=== PATIENT | female | born 1950 | race Caucasian/White ===

== ENCOUNTER → 2016-11-03 | Outpatient (CLI) | payer OTHER ==
[~2016-11-03] MED LIST: ADVAIR DISKUS 21 DSK; ALENDRONATE SOD70 M1 PO; ALENDRONATE SODI5 MG PO; ARIMIDEX1 MG PO; ATIVAN0.5 MG PO; BRIN10TA PO; CEFTIN500 MG PO; DURICEF500 MG; JANUMET XR 1001 EACH PO; KEFLEX500 MG PO; KOMBIGLYZE XR 11 TER PO; LIPITOR20 MG PO; LISINOPRIL10 MG PO; LOPRESSOR25 MG PO; Motrin,Rufen800 MG PO; NEXIUM40 MG PO; PREDNISONE10 MG PO; PRILOSEC20 M1 PO; PROAIR HFA0.09 MG/AC; PROTONIX40 MG PO; REGLAN5 MG PO; SYMBICORT1 AE1 INH; TOPROL XL25 MG PO; VICODIN ES 7501 TAB PO; VISTARIL25 M1; VITAMIN D50000 I2 PO; Vicodin 5/500 505 MG PO; ZOFRAN ODT4 MG SL; ZOLOFT100 MG PO; [UNRECOGNIZED DRUG - CODE]
== END | disposition home or self-care (01) ==
LOC: MAMMO 10:18
DX: Z90.12 Acquired absence of left breast and nipple (principal)

== ENCOUNTER → 2016-11-20 | Outpatient (CLI) | payer OTHER ==
[2016-11-20 13:16] LABS: HEMATOCRIT 35.4 % (37.0-47.0); IRF 4.5 % (2.4-13.3); RET-He 32.5 pg (32.1-37.9); RETICULOCYTE % 1.68 % (0.50-2.50)
[2016-11-20 13:34] LABS: HEMOGLOBIN A1c 5.6 % (4.8-5.6)
[2016-11-20 13:44] LABS: ALBUMIN 3.6 gm/dl (3.1-4.5); BILIRUBIN, TOTAL 0.3 mg/dl (0.2-1.0); BUN 17 mg/dl (7-24); CARBON DIOXIDE 27 mmol/L (21-32); CHLORIDE 97 mmol/L (98-107); EST GLOM FILT AFRICAN AMERICAN > 60 ml/min; GLUCOSE 94 mg/dL (65-99); IRON 44 ug/dL (50-170); IRON SATURATION 13 %; POTASSIUM 4.6 mmol/L (3.5-5.1); SGOT/AST 15 IU/L (3-35); SGPT/ALT 23 U/L (12-78); SODIUM 132 mmol/L (136-145); TOTAL PROTEIN 7.1 gm/dL (6.4-8.2); UIBC 287 ug/dL (110-365)
[2016-11-20 13:50] LABS: ALKALINE PHOSPHATASE 108 U/L (45-117); BILIRUBIN, DIRECT 0.1 mg/dL (0.0-0.2); FREE T4 0.94 ng/dl (0.76-1.46)
== END | disposition home or self-care (01) ==
LOC: LAB 12:39
PROVIDERS: Internal Medicine
DX: E11.9 Type 2 diabetes mellitus without complications (principal); E55.9 Vitamin D deficiency, unspecified; E05.90 Thyrotoxicosis, unspecified without thyrotoxic crisis or storm; D64.9 Anemia, unspecified

== ENCOUNTER → 2017-01-16 | Outpatient (CLI) | payer OTHER ==
[2017-01-16 17:14] LABS: FREE T4 0.91 ng/dl (0.76-1.46)
[2017-01-16 17:19] LABS: THYROID STIM HORMONE (HS) 2.03 uIU/ml (0.358-4.75)
== END | disposition home or self-care (01) ==
LOC: LAB 16:05
PROVIDERS: Otolaryngology
DX: E03.9 Hypothyroidism, unspecified (principal)

== ENCOUNTER 2017-03-15 12:31 | Emergency (ER) | payer MEDICARE ==
[~2017-03-15] VITALS: Ht 162.5 cm; Wt 81.6 kg
[2017-03-15 12:50] LABS: BASO # 0.1 10*3/uL (0.0-0.1); BASO % 0.6 % (0.0-1.0); EOS # 0.2 10*3/uL (0.0-0.4); EOS % 1.7 % (1.0-4.0); HEMATOCRIT 35.1 % (37.0-47.0); IG # 0.1 10*3/uL (0.0-0.1); LYMPH # 1.9 10*3/uL (1.3-4.4); LYMPH % 22.2 % (27.0-41.0); MEAN CELL VOLUME 83.6 fl (81.0-99.0); MEAN CORPUSCULAR HGB 28.6 pg (27.0-31.0); MEAN CORPUSCULAR HGB CONC 34.2 g/dl (33.0-37.0); MEAN PLATELET VOLUME 10.2 fl (9.6-12.3); MONO # 0.6 10*3/uL (0.1-1.0); MONO % 7.4 % (3.0-9.0); NEUT # 5.8 10*3/uL (2.3-7.9); NEUT % 67.5 % (47.0-73.0); PLATELET COUNT AUTOMATED 293 10*3/uL (130-400); RED CELL DISTRI WIDTH 13.3 % (0-14.5); WHITE BLOOD COUNT 8.6 10*3/uL (4.8-10.8)
[2017-03-15 12:58] LABS: PROTHROMBIN TIME 10.1 SECONDS (9.0-12.4)
[2017-03-15 13:06] LABS: ALBUMIN 3.8 gm/dl (3.1-4.5); ALKALINE PHOSPHATASE 95 U/L (45-117); BILIRUBIN, TOTAL 0.4 mg/dl (0.2-1.0); BUN 12 mg/dl (7-24); CARBON DIOXIDE 28 mmol/L (21-32); CHLORIDE 88 mmol/L (98-107); EST GLOM FILT AFRICAN AMERICAN 47 ml/min; GLUCOSE 89 mg/dL (65-99); MAGNESIUM 1.7 mg/dL (1.5-2.1); POTASSIUM 4.3 mmol/L (3.5-5.1); SGOT/AST 35 IU/L (3-35); SGPT/ALT 41 U/L (12-78); SODIUM 125 mmol/L (136-145); TOTAL PROTEIN 7.1 gm/dL (6.4-8.2)
[2017-03-15 13:10] LABS: TROPONIN I < 0.015 ng/ml (<0.045)
[2017-03-15 13:28] VITALS: BP 132/80
== END 2017-03-15 17:12 | disposition home or self-care (01) ==
LOC: ED 12:31
PROVIDERS: Emergency Medicine
DX: R07.89 Other chest pain (principal); R06.02 Shortness of breath; R11.0 Nausea; R19.7 Diarrhea, unspecified; E11.9 Type 2 diabetes mellitus without complications; J45.909 Unspecified asthma, uncomplicated; I10 Essential (primary) hypertension; E78.00 Pure hypercholesterolemia, unspecified; Z79.899 Other long term (current) drug therapy

== ENCOUNTER → 2017-08-01 | Outpatient (CLI) | payer MEDICARE, OTHER ==
[2017-08-01 11:17] LABS: ALBUMIN 3.5 gm/dl (3.1-4.5)
[2017-08-01 11:29] LABS: FREE T4 1.48 ng/dl (0.76-1.46); THYROID STIM HORMONE (HS) 3.5 uIU/ml (0.358-4.75)
== END | disposition home or self-care (01) ==
LOC: LAB 10:05
PROVIDERS: Internal Medicine
DX: E05.90 Thyrotoxicosis, unspecified without thyrotoxic crisis or storm (principal); E55.9 Vitamin D deficiency, unspecified

== ENCOUNTER → 2017-11-14 | Outpatient (CLI) | payer MEDICARE, OTHER | END | disposition home or self-care (01) | LOC: MAMMO 08:29 | DX: N63.10 Unspecified lump in the right breast, unspecified quadrant (principal) ==

== ENCOUNTER → 2018-03-12 | Outpatient (CLI) | payer MEDICARE, OTHER ==
[2018-03-12 13:50] LABS: ALBUMIN 3.3 gm/dl (3.1-4.5); ALKALINE PHOSPHATASE 98 U/L (45-117); BILIRUBIN, DIRECT 0.1 mg/dL (0.0-0.2); BUN 16 mg/dl (7-24); CHLORIDE 96 mmol/L (98-107); CREATININE 0.96 mg/dL (0.55-1.02); FREE T4 1.53 ng/dl (0.76-1.46); POTASSIUM 4.5 mmol/L (3.5-5.1); SGOT/AST 16 IU/L (3-35); SGPT/ALT 19 U/L (12-78); SODIUM 130 mmol/L (136-145); TOTAL PROTEIN 7.3 gm/dL (6.4-8.2)
[2018-03-12 13:56] LABS: THYROID STIM HORMONE (HS) 0.171 uIU/ml (0.358-4.75)
[2018-03-13 08:08] LABS: FREE T3 010389 2.5 pg/mL (2.0-4.4); THYROID PEROXIDASE (TPO) AB 11 IU/mL (0-34)
[2018-03-13 15:07] LABS: THYROGLOBULIN ANTIBODY <1.0 IU/mL (0.0-0.9)
== END | disposition home or self-care (01) ==
LOC: LAB 12:37
PROVIDERS: Internal Medicine
DX: E11.9 Type 2 diabetes mellitus without complications (principal); E55.9 Vitamin D deficiency, unspecified; E03.9 Hypothyroidism, unspecified; E78.5 Hyperlipidemia, unspecified; C73 Malignant neoplasm of thyroid gland

== ENCOUNTER → 2018-09-11 | Outpatient (CLI) | payer MEDICARE, OTHER ==
[2018-09-11 15:31] LABS: BILIRUBIN NEGATIVE (NEGATIVE); BLOOD NEGATIVE (NEGATIVE); CLARITY CLEAR (CLEAR); COLOR YELLOW (YELLOW); GLUCOSE NEGATIVE (NEGATIVE); KETONE NEGATIVE (NEGATIVE); LEUKO ESTERASE NEGATIVE (NEGATIVE); NITRITE NEGATIVE (NEGATIVE); UROBILINOGEN 0.2 E.U./dl (0.2-1.0)
[2018-09-11 16:02] LABS: ALBUMIN 3.5 gm/dl (3.1-4.5); BILIRUBIN, DIRECT 0.1 mg/dL (0.0-0.2); CREATININE 1.11 mg/dL (0.55-1.02); FREE T4 1.65 ng/dl (0.76-1.46); POTASSIUM 4.6 mmol/L (3.5-5.1); TOTAL PROTEIN 7.6 gm/dL (6.4-8.2)
[2018-09-11 16:07] LABS: THYROID STIM HORMONE (HS) 0.088 uIU/ml (0.358-4.75)
[2018-09-12 07:07] LABS: THYROID PEROXIDASE (TPO) AB <6 IU/mL (0-34)
[2018-09-12 14:06] LABS: THYROGLOBULIN ANTIBODY <1.0 IU/mL (0.0-0.9)
== END | disposition home or self-care (01) ==
LOC: LAB 15:02
PROVIDERS: Internal Medicine
DX: C73 Malignant neoplasm of thyroid gland (principal); E03.9 Hypothyroidism, unspecified; E11.9 Type 2 diabetes mellitus without complications; E55.9 Vitamin D deficiency, unspecified; E78.5 Hyperlipidemia, unspecified

== ENCOUNTER → 2019-03-05 | Outpatient (CLI) | payer MEDICARE, OTHER | END | disposition home or self-care (01) | LOC: MAMMO 02-27 09:30 | DX: C50.912 Malignant neoplasm of unspecified site of left female breast (principal) ==

== ENCOUNTER → 2019-06-02 | Outpatient (CLI) | payer MEDICARE, OTHER ==
[~2019-06-02] MED LIST changes: +CITALOPRAM20 MG PO; +LEVAQUIN500 M2 PO; +LEVOXYL112 MCG PO; +METFORMIN HYDR500 MG PO; +TRELEGY ELLIPT1 EACH INH; +Ventolin 02.5 MG/3 M INH
== END | disposition home or self-care (01) ==
LOC: RAD 13:10
DX: M81.0 Age-related osteoporosis without current pathological fracture (principal); E11.9 Type 2 diabetes mellitus without complications; Z78.0 Asymptomatic menopausal state

== ENCOUNTER 2019-06-28 16:27 | Inpatient (IN) | payer MEDICARE, OTHER ==
[~2019-06-28] VITALS: Ht 162.5 cm; Wt 81.0 kg
[~2019-06-28 16:27] MED LIST changes: -CITALOPRAM20 MG PO; -LEVAQUIN500 M2 PO; -LEVOXYL112 MCG PO; -METFORMIN HYDR500 MG PO; -TRELEGY ELLIPT1 EACH INH; -Ventolin 02.5 MG/3 M INH
[2019-06-28 16:29] VITALS: BP 163/75
--- NOTE | 2019-06-28 16:42 | NUR ---
PATIENT DENIES ANY WOUNDS AT THIS TIME. PATIENT IS A&OX4.
--- NOTE | 2019-06-28 16:43 | NUR ---
PATIENT PULSE OX IS 96% ON ROOM AIR. PLACED ON 2L OF NASAL CANNULA PER COMFORT.
[2019-06-28 16:51] LABS: BASO # 0.1 10*3/uL (0.0-0.1); BASO % 1.1 % (0.0-1.0); EOS # 0.6 10*3/uL (0.0-0.4); EOS % 7.4 % (1.0-4.0); HEMOGLOBIN 11.9 g/dl (12.0-16.0); LYMPH # 2.1 10*3/uL (1.3-4.4); LYMPH % 25.1 % (27.0-41.0); MEAN CELL VOLUME 86.7 fl (81.0-99.0); MEAN CORPUSCULAR HGB 28.7 pg (27.0-31.0); MEAN CORPUSCULAR HGB CONC 33.1 g/dl (33.0-37.0); MEAN PLATELET VOLUME 9.9 fl (9.6-12.3); MONO # 0.9 10*3/uL (0.1-1.0); MONO % 11.2 % (3.0-9.0); NEUT # 4.6 10*3/uL (2.3-7.9); NEUT % 54.6 % (47.0-73.0); PLATELET COUNT AUTOMATED 422 10*3/uL (130-400); RED BLOOD COUNT 4.15 10*6/uL (4.10-5.10); RED CELL DISTRI WIDTH 12.6 % (0-14.5); WHITE BLOOD COUNT 8.4 10*3/uL (4.8-10.8)
[2019-06-28 17:01] LABS: ACT PARTIAL THROMBO TIME 24.5 SECONDS (20.0-32.1); INTERNATIONAL NORM RATIO 0.9 (2.0-3.5)
[2019-06-28 17:10] LABS: ALBUMIN 3.5 gm/dl (3.1-4.5); ALKALINE PHOSPHATASE 95 U/L (45-117); BUN 22 mg/dl (7-24); CHLORIDE 95 mmol/L (98-107); CREATININE 1.07 mg/dL (0.55-1.02); POTASSIUM 4.6 mmol/L (3.5-5.1); SGOT/AST 14 IU/L (3-35); SGPT/ALT 22 U/L (12-78); SODIUM 129 mmol/L (136-145); TOTAL PROTEIN 7.7 gm/dL (6.4-8.2)
[2019-06-28 17:11] LABS: TROPONIN I < 0.015 ng/ml (<0.045)
--- NOTE | 2019-06-28 17:37 | NUR ---
PT REPORTS SHE IS BREATHING EASIER AFTER BREATHING TREATMENT. IVF INFUSING AND MEDICATED PER EMAR. SPO2 99% ON 2L PER NC.
[2019-06-28 17:45] VITALS: BP 114/67
[2019-06-28 19:02] VITALS: BP 141/73
--- NOTE | 2019-06-28 19:53 | NUR ---
LAB CALLED WITH CRITICAL LACTIC ACID LEVEL 4.5. CAROL RAZA PROVIDED RESULTS.PT TRANSFERRED TO UNIT AT THIS TIME.
[2019-06-28 19:58] VITALS: BP 99/72
--- NOTE | 2019-06-28 19:58 | NUR ---
A 68, admitted to , under the services of ROCIO Johnson DO with a diagnosis of DYSPNEA, SEVERE SEPSIS, COPD EXACERBATION. Chief complaint is SHORTNESS OF BREATH. Patient arrived via bed from ER. Monitor applied. Initial assessment completed. Vital signs taken and recorded. ROCIO JOHNSON DO notified of admission to the unit. Orders received. See assessment for past medical history, medications and allergies. Patient and/or family oriented to unit. [facility] visitation policy reviewed. Clothing/patient valuable form completed. BARRINGTON MORIN
[2019-06-28] MEDS ORDERED: METFORMIN HYDR500 MG PO (20:55)
[2019-06-28] MEDS ORDERED: LEVOXYL112 MCG PO (20:55)
[2019-06-28] MEDS ORDERED: CITALOPRAM20 MG PO (20:56)
[2019-06-28] MEDS ORDERED: Ventolin 02.5 MG/3 M INH (20:56)
[2019-06-28] MEDS ORDERED: TRELEGY ELLIPT1 EACH INH (20:57)
--- NOTE | 2019-06-28 21:02 | NUR ---
DR JOSE NOTIFIED THAT PT MED REC IS UPDATED PER PAPERWORK PROVIDED BY PATIENT.
--- NOTE | 2019-06-28 22:02 | NUR ---
PT GIVEN TYLENOL AT THIS TIME FOR C/O HEADACHE. WILL MONITOR FOR EFFECTIVENESS. CALL LIGHT IN REACH.
--- NOTE | 2019-06-28 22:13 | NUR ---
LAB CALLS THIS NURSE AND GIVES CRITICAL LACTIC ACID LEVEL OF 3.0. DR JOSE NOTIFIED. NO NEW ORDERS RECEIVED.
[2019-06-28 22:32] VITALS: BP 130/78
--- NOTE | 2019-06-28 23:06 | NUR ---
PT STATES THAT TYLENOL IS NOT EFFECTIVE AT THIS TIME FOR PT HEADACHE. NORCO GIVEN. WILL MONITOR FOR EFFECTIVENESS. NO OTHER COMPLAINTS ARE VOICED AT THIS TIME. RESPIRATIONS EASY AND UNLABORED ON 2L NC. CALL LIGHT IN REACH.
[2019-06-29] VITALS: BP 133/75
--- NOTE | 2019-06-29 00:06 | NUR ---
NORCO IS EFFECTIVE PER PT.
--- NOTE | 2019-06-29 00:48 | NUR ---
LAB CALLS THIS NURSE AND GIVES CRITICAL LACTIC ACID LEVEL OF 3.5. NO NEW ORDERS RECEIVED AT THIS TIME.
--- NOTE | 2019-06-29 06:30 | NUR ---
AM BLOOD SUGAR OBTAINED. 190, COVERAGE GIVEN PER S/S. RESPIRATIONS EASY AND UNLABORED ON 2LNC. NO COMPLAINTS ARE VOICED. CALL LIGHT IN REACH.
[2019-06-29 06:54] LABS: HEMATOCRIT 29.9 % (37.0-47.0); HEMOGLOBIN 10.5 g/dl (12.0-16.0); MEAN CELL VOLUME 84.9 fl (81.0-99.0); MEAN CORPUSCULAR HGB 29.8 pg (27.0-31.0); MEAN CORPUSCULAR HGB CONC 35.1 g/dl (33.0-37.0); MEAN PLATELET VOLUME 10.6 fl (9.6-12.3); PLATELET COUNT AUTOMATED 347 10*3/uL (130-400); RED BLOOD COUNT 3.52 10*6/uL (4.10-5.10); RED CELL DISTRI WIDTH 12.6 % (0-14.5); WHITE BLOOD COUNT 5.7 10*3/uL (4.8-10.8)
[2019-06-29 06:59] LABS: ALBUMIN 3.1 gm/dl (3.1-4.5)
[2019-06-29 07:09] LABS: CREATININE 1.17 mg/dL (0.55-1.02); FREE T4 1.65 ng/dl (0.76-1.46); THYROID STIM HORMONE (HS) 0.556 uIU/ml (0.358-4.75); TOTAL PROTEIN 6.6 gm/dL (6.4-8.2)
[2019-06-29 07:10] LABS: POTASSIUM 3.6 mmol/L (3.5-5.1)
[2019-06-29 07:22] LABS: BURR CELLS FEW; OVALOCYTES FEW; PLATELET SUFFICIENCY NORMAL (NORMAL); TOTAL CELLS COUNTED 100 #CELLS
[2019-06-29 07:23] LABS: SCHISTOCYTES FEW
--- NOTE | 2019-06-29 07:34 | NUR ---
NOTIFIED DR RODRIGUEZ OF PT MAGNESIUM LEVEL OF 0.8. NO NEW ORDERS RECEIVED AT THIS TIME.
[2019-06-29 08:00] VITALS: BP 139/63
[2019-06-29 12:00] VITALS: BP 110/50
[2019-06-29 16:00] VITALS: BP 141/63
[2019-06-29 20:00] VITALS: BP 130/64
--- NOTE | 2019-06-29 21:34 | NUR ---
PATIENT MEDICATED WITH RESTORIL FOR COMPLAINTS OF INSOMNIA. DENIES COMPLAINTS OF PAIN OR DISCOMFORT AT THIS TIME. RESPIRATIONS REGULAR AND NON-LABORED ON O2 AT 2L N/C. LUNGS DIMINISHED BILATERALLY. VSS. WILL CONTINUE TO MONITOR. CALL LIGHT IN REACH.
[2019-06-30] VITALS: BP 121/61
--- NOTE | 2019-06-30 02:26 | NUR ---
24 HR chart check completed.
[2019-06-30 06:36] LABS: HEMATOCRIT 30.5 % (37.0-47.0); HEMOGLOBIN 10.2 g/dl (12.0-16.0); MEAN CELL VOLUME 87.1 fl (81.0-99.0); MEAN CORPUSCULAR HGB 29.1 pg (27.0-31.0); MEAN CORPUSCULAR HGB CONC 33.4 g/dl (33.0-37.0); MEAN PLATELET VOLUME 10.1 fl (9.6-12.3); PLATELET COUNT AUTOMATED 371 10*3/uL (130-400); RED CELL DISTRI WIDTH 13.2 % (0-14.5); WHITE BLOOD COUNT 21.9 10*3/uL (4.8-10.8)
[2019-06-30 06:43] LABS: ALBUMIN 3.3 gm/dl (3.1-4.5); ALKALINE PHOSPHATASE 72 U/L (45-117); BUN 16 mg/dl (7-24); CHLORIDE 98 mmol/L (98-107); CREATININE 1.06 mg/dL (0.55-1.02); POTASSIUM 4.5 mmol/L (3.5-5.1); SGOT/AST 19 IU/L (3-35); SGPT/ALT 21 U/L (12-78); SODIUM 129 mmol/L (136-145); TOTAL PROTEIN 6.8 gm/dL (6.4-8.2)
[2019-06-30 07:33] LABS: OVALOCYTES FEW; SCHISTOCYTES FEW; TOTAL CELLS COUNTED 100 #CELLS
[2019-06-30 07:34] LABS: PLATELET SUFFICIENCY NORMAL (NORMAL)
--- NOTE | 2019-06-30 07:59 | NUR ---
PT ALERT AND ORIENTED X3. VITAL SIGNS STABLE. JAUN. PO2 96% RA. HEART SOUNDS NORMAL. LUNGS SOUNDS DIMINISHED. POSITIVE PEDAL PULSES. IV SITE SHOWS NO SIGNS OF INFECTION. ABDOMEN SOFT, NON TENDER, NON DISTENDED. BS X4. SKIN SOFT, PINK, DRY. CAPILARY REFILL <3. NO COMPLAINTS OF PAIN AT THIS TIME. SANGEETA HERRERA SPNRCC
[2019-06-30 08:00] VITALS: BP 130/70
--- NOTE | 2019-06-30 09:00 | NUR ---
Manufacturer Representative in to talk to patient. Patient states lives at home with . There are few steps in the home. Physician: mili clemons Pharmacy: [facility] Home health services: none Patient's level of ADLs: INDEPENDENT Patient has working utilities: all working DME: none Follow-up physician's appointment after d/c: will be made by hospitalist nurse director upon discharge Does patient want to access PORTAL?: no Discharge plan discussed with patient, she states she lives at home with her , she is independent in adls and ambulation she states she will return home when medically stable, she denies any home needs, case management will follow. MAURICIO WANG
[2019-06-30 12:00] VITALS: BP 130/70
[2019-06-30 16:00] VITALS: BP 110/58
[2019-06-30 20:00] VITALS: BP 115/67
[2019-07-01] VITALS: BP 126/73
--- NOTE | 2019-07-01 02:28 | NUR ---
PATIENT RESTING IN BED WITH EYES CLOSED. RESPIRATIONS REGULAR AND NON-LABORED. AROUSES TO VERBAL STIMULI. DENIES COMPLAINTS OF PAIN OR DISCOMFORT. VSS. AMBULATES TO BATHROOM PER SELF. WILL CONTINUE TO MONITOR. CALL LIGHT IN REACH.
[2019-07-01 06:49] LABS: HEMATOCRIT 30.8 % (37.0-47.0); HEMOGLOBIN 10.2 g/dl (12.0-16.0); MEAN CELL VOLUME 88.3 fl (81.0-99.0); MEAN CORPUSCULAR HGB 29.2 pg (27.0-31.0); MEAN CORPUSCULAR HGB CONC 33.1 g/dl (33.0-37.0); MEAN PLATELET VOLUME 9.8 fl (9.6-12.3); PLATELET COUNT AUTOMATED 336 10*3/uL (130-400); RED BLOOD COUNT 3.49 10*6/uL (4.10-5.10); RED CELL DISTRI WIDTH 13.2 % (0-14.5); WHITE BLOOD COUNT 17.6 10*3/uL (4.8-10.8)
[2019-07-01 07:48] LABS: BUN 21 mg/dl (7-24); CHLORIDE 99 mmol/L (98-107); POTASSIUM 4.6 mmol/L (3.5-5.1); SODIUM 130 mmol/L (136-145)
[2019-07-01 07:58] LABS: TOTAL CELLS COUNTED 100 #CELLS
[2019-07-01 07:59] LABS: ACANTHOCYTES FEW; BURR CELLS FEW; OVALOCYTES FEW; PLATELET SUFFICIENCY NORMAL (NORMAL); SCHISTOCYTES FEW
[2019-07-01 08:00] VITALS: BP 134/82
--- NOTE | 2019-07-01 08:00 | NUR ---
Patient resting quietly with no c/o discomfort. Respirations easy and regular. Vital signs stable. No overt distress. DELON CLARK R
--- NOTE | 2019-07-01 09:00 | NUR ---
case management visits with patient, she states she will be discharged to home today, she denies any home needs
[2019-07-01] MEDS ORDERED: PREDNISONE10 MG PO (10:05)
[2019-07-01] MEDS ORDERED: LEVAQUIN500 M2 PO (10:05)
--- NOTE | 2019-07-01 11:30 | NUR ---
AEROSOL MACHINE IS TO BE DELIVERED TO PT HOME. PT STATES UNDERSTANDING.
--- NOTE | 2019-07-01 11:30 | NUR ---
Discharge instructions reviewed with patient/family. Patient receptive and verbalizes understanding. Follow-up care arranged. Written instructions given to patient/family. DELON CLARK
[2019-07-01] MEDS ORDERED: Ventolin 02.5 MG/3 M INH (11:32)
--- NOTE | 2019-07-01 15:52 | NUR ---
case management spoke to nellie from [facility], patient's information and script for nebulizer faxed
== END 2019-07-01 11:26 | disposition home or self-care (01) | DRG 202 ==
LOC: ED 16:27 → 5E 18:38 → EDHOLD 18:38 → 5E 19:46
PROVIDERS: Emergency Medicine; Family Medicine; Internal Medicine; ADMIT Internal Medicine
DX: J45.901 Unspecified asthma with (acute) exacerbation (principal); E87.1 Hypo-osmolality and hyponatremia; E87.2 Acidosis; J43.9 Emphysema, unspecified; D64.9 Anemia, unspecified; D47.3 Essential (hemorrhagic) thrombocythemia; E83.42 Hypomagnesemia; R79.89 Other specified abnormal findings of blood chemistry; I10 Essential (primary) hypertension; F32.9 Major depressive disorder, single episode, unspecified; F41.9 Anxiety disorder, unspecified; Z96.651 Presence of right artificial knee joint; E11.65 Type 2 diabetes mellitus with hyperglycemia; E87.8 Other disorders of electrolyte and fluid balance, not elsewhere classified; E83.39 Other disorders of phosphorus metabolism; E78.5 Hyperlipidemia, unspecified; E89.0 Postprocedural hypothyroidism; Z91.09 Other allergy status, other than to drugs and biological substances; Z98.51 Tubal ligation status; Z90.12 Acquired absence of left breast and nipple; Z87.891 Personal history of nicotine dependence; Z82.49 Family history of ischemic heart disease and other diseases of the circulatory system; Z80.1 Family history of malignant neoplasm of trachea, bronchus and lung; Z80.8 Family history of malignant neoplasm of other organs or systems; Z83.3 Family history of diabetes mellitus; Z82.5 Family history of asthma and other chronic lower respiratory diseases; Z82.0 Family history of epilepsy and other diseases of the nervous system; Z85.3 Personal history of malignant neoplasm of breast; Z85.850 Personal history of malignant neoplasm of thyroid; Z79.899 Other long term (current) drug therapy

== ENCOUNTER 2019-08-04 19:15 | Emergency (ER) | payer MEDICARE, OTHER ==
[~2019-08-04] VITALS: Ht 162.5 cm; Wt 78.0 kg
[~2019-08-04 19:15] MED LIST changes: +CITALOPRAM20 MG PO; +LEVAQUIN500 M2 PO; +LEVOXYL112 MCG PO; +METFORMIN HYDR500 MG PO; +TRELEGY ELLIPT1 EACH INH; +Ventolin 02.5 MG/3 M INH
[2019-08-04 19:18] VITALS: BP 126/66
[2019-08-04 21:10] LABS: HEMATOCRIT 32.9 % (37.0-47.0); HEMOGLOBIN 10.6 g/dl (12.0-16.0); MEAN CELL VOLUME 86.6 fl (81.0-99.0); MEAN CORPUSCULAR HGB 27.9 pg (27.0-31.0); MEAN CORPUSCULAR HGB CONC 32.2 g/dl (33.0-37.0); MEAN PLATELET VOLUME 9.3 fl (9.6-12.3); PLATELET COUNT AUTOMATED 486 10*3/uL (130-400); RED CELL DISTRI WIDTH 12.8 % (0-14.5); WHITE BLOOD COUNT 8.8 10*3/uL (4.8-10.8)
[2019-08-04 21:26] LABS: ALBUMIN 3.1 gm/dl (3.1-4.5); CREATININE 1.19 mg/dL (0.55-1.02); POTASSIUM 4.4 mmol/L (3.5-5.1); TOTAL PROTEIN 7.4 gm/dL (6.4-8.2)
[2019-08-04 21:32] LABS: TOTAL CELLS COUNTED 100 #CELLS
[2019-08-04 21:33] LABS: OVALOCYTES FEW; PLATELET SUFFICIENCY HIGH (NORMAL)
[2019-08-04 22:02] LABS: BILIRUBIN NEGATIVE (NEGATIVE); BLOOD NEGATIVE (NEGATIVE); CLARITY CLEAR (CLEAR); COLOR YELLOW (YELLOW); GLUCOSE NEGATIVE (NEGATIVE); KETONE TRACE (NEGATIVE); LEUKO ESTERASE NEGATIVE (NEGATIVE); NITRITE NEGATIVE (NEGATIVE); PH 6.5 (5.0-9.0); UROBILINOGEN 0.2 E.U./dl (0.2-1.0)
[2019-08-04 22:19] LABS: BACTERIA TRACE; RBC 0-2 rbc/hpf (0-2); WBC 0-2 wbc/hpf (0-5)
[2019-08-04] MEDS ORDERED: PREDNISONE20 M1 PO (23:12)
[2019-08-04] MEDS ORDERED: LEVAQUIN750 M1 PO (23:12)
== END 2019-08-04 23:10 | disposition home or self-care (01) ==
LOC: ED 19:15
PROVIDERS: Emergency Medicine
DX: J44.1 Chronic obstructive pulmonary disease with (acute) exacerbation (principal); E03.9 Hypothyroidism, unspecified; E11.9 Type 2 diabetes mellitus without complications; I10 Essential (primary) hypertension; K21.9 Gastro-esophageal reflux disease without esophagitis; E78.00 Pure hypercholesterolemia, unspecified; Z87.891 Personal history of nicotine dependence; Z91.048 Other nonmedicinal substance allergy status; Z79.2 Long term (current) use of antibiotics; Z79.899 Other long term (current) drug therapy

== ENCOUNTER → 2019-10-17 | Outpatient (CLI) | payer MEDICARE, OTHER ==
[~2019-10-17] MED LIST changes: +LEVAQUIN750 M1 PO; +PREDNISONE20 M1 PO
[2019-10-17 16:04] LABS: BILIRUBIN NEGATIVE (NEGATIVE); BLOOD NEGATIVE (NEGATIVE); CLARITY CLEAR (CLEAR); COLOR YELLOW (YELLOW); GLUCOSE NEGATIVE (NEGATIVE); KETONE NEGATIVE (NEGATIVE); SPECIFIC GRAVITY 1.015 (1.005-1.030)
[2019-10-17 16:05] LABS: LEUKO ESTERASE NEGATIVE (NEGATIVE); NITRITE NEGATIVE (NEGATIVE); UROBILINOGEN 0.2 E.U./dl (0.2-1.0)
[2019-10-17 16:15] LABS: BACTERIA 1+; MUCOUS TRACE; RBC 0-2 rbc/hpf (0-2)
[2019-10-17 16:38] LABS: CREATININE 1.25 mg/dL (0.55-1.02); FREE T4 0.96 ng/dl (0.76-1.46); POTASSIUM 4.6 mmol/L (3.5-5.1); URIC ACID 4.8 mg/dL (2.6-6.0)
[2019-10-17 16:44] LABS: THYROID STIM HORMONE (HS) 8.57 uIU/ml (0.358-4.75)
[2019-10-17 16:45] LABS: PTH INTACT 40.9 pg/mL (18.5-88.0); VITAMIN D, 25-HYDROXY 42.2 ng/mL (30-100)
[2019-10-18 07:06] LABS: THYROID PEROXIDASE (TPO) AB <6 IU/mL (0-34)
[2019-10-20 15:06] LABS: THYROGLOBULIN ANTIBODY <1.0 IU/mL (0.0-0.9)
== END | disposition home or self-care (01) ==
LOC: LAB 14:24
PROVIDERS: Internal Medicine
DX: C73 Malignant neoplasm of thyroid gland (principal); N20.0 Calculus of kidney; E11.9 Type 2 diabetes mellitus without complications; E03.9 Hypothyroidism, unspecified; E55.9 Vitamin D deficiency, unspecified

== ENCOUNTER 2019-12-15 10:12 | Emergency (ER) | payer MEDICARE, OTHER ==
[~2019-12-15] VITALS: Ht 162.5 cm; Wt 82.6 kg
[2019-12-15 11:16] LABS: BASO # 0.1 10*3/uL (0.0-0.1); BASO % 1.2 % (0.0-1.0); EOS # 0.4 10*3/uL (0.0-0.4); EOS % 5.2 % (1.0-4.0); HEMATOCRIT 35.4 % (37.0-47.0); LYMPH # 1.5 10*3/uL (1.3-4.4); LYMPH % 22.6 % (27.0-41.0); MEAN CELL VOLUME 83.7 fl (81.0-99.0); MEAN CORPUSCULAR HGB 28.1 pg (27.0-31.0); MEAN CORPUSCULAR HGB CONC 33.6 g/dl (33.0-37.0); MEAN PLATELET VOLUME 10.5 fl (9.6-12.3); MONO # 0.6 10*3/uL (0.1-1.0); MONO % 8.5 % (3.0-9.0); NEUT # 4.1 10*3/uL (2.3-7.9); NEUT % 62.1 % (47.0-73.0); PLATELET COUNT AUTOMATED 305 10*3/uL (130-400); RED BLOOD COUNT 4.23 10*6/uL (4.10-5.10); RED CELL DISTRI WIDTH 14.1 % (0-14.5); WHITE BLOOD COUNT 6.7 10*3/uL (4.8-10.8)
[2019-12-15 11:27] LABS: ACT PARTIAL THROMBO TIME 23.6 SECONDS (20.0-32.1); INTERNATIONAL NORM RATIO 0.9 (2.0-3.5)
[2019-12-15 11:37] LABS: ALBUMIN 3.4 gm/dl (3.1-4.5); ALKALINE PHOSPHATASE 79 U/L (45-117); BUN 12 mg/dl (7-24); CHLORIDE 94 mmol/L (98-107); LIPASE 254 U/L (73-393); POTASSIUM 4.6 mmol/L (3.5-5.1); SGOT/AST 59 IU/L (3-35); SGPT/ALT 34 U/L (12-78); SODIUM 127 mmol/L (136-145); TOTAL PROTEIN 6.9 gm/dL (6.4-8.2); TROPONIN I < 0.015 ng/ml (<0.045)
[2019-12-15 13:40] VITALS: BP 128/78
[2019-12-15 13:42] LABS: BILIRUBIN NEGATIVE (NEGATIVE); BLOOD NEGATIVE (NEGATIVE); CLARITY SL CLOUDY (CLEAR); COLOR YELLOW (YELLOW); GLUCOSE NEGATIVE (NEGATIVE); KETONE NEGATIVE (NEGATIVE); LEUKO ESTERASE NEGATIVE (NEGATIVE); NITRITE NEGATIVE (NEGATIVE); PH 7.5 (5.0-9.0); UROBILINOGEN 0.2 E.U./dl (0.2-1.0)
[2019-12-15 13:43] LABS: BACTERIA 4+
[2019-12-15 13:56] LABS: CREATININE 1.33 mg/dL (0.55-1.02); POTASSIUM 4.4 mmol/L (3.5-5.1)
[2019-12-15] MEDS ORDERED: LEVOTHYROXINE150 MCG PO (14:36)
== END 2019-12-15 15:26 | disposition home or self-care (01) ==
LOC: ED 10:12
PROVIDERS: Nurse Practitioner Family
DX: E03.9 Hypothyroidism, unspecified (principal); E86.0 Dehydration; I10 Essential (primary) hypertension; K21.9 Gastro-esophageal reflux disease without esophagitis; F41.9 Anxiety disorder, unspecified; F32.9 Major depressive disorder, single episode, unspecified; J45.909 Unspecified asthma, uncomplicated; E11.9 Type 2 diabetes mellitus without complications; M19.90 Unspecified osteoarthritis, unspecified site; E78.00 Pure hypercholesterolemia, unspecified; J44.9 Chronic obstructive pulmonary disease, unspecified; E78.5 Hyperlipidemia, unspecified; Z79.899 Other long term (current) drug therapy; Z87.891 Personal history of nicotine dependence

== ENCOUNTER 2020-01-06 15:49 | Emergency (ER) | payer MEDICARE, OTHER ==
[~2020-01-06] VITALS: Ht 162.5 cm; Wt 81.6 kg
[~2020-01-06 15:49] MED LIST changes: +LEVOTHYROXINE150 MCG PO
[2020-01-06 16:02] VITALS: BP 104/58
[2020-01-06 16:52] LABS: MEAN CELL VOLUME 84.8 fl (81.0-99.0); MEAN CORPUSCULAR HGB 27.8 pg (27.0-31.0); MEAN CORPUSCULAR HGB CONC 32.8 g/dl (33.0-37.0); MEAN PLATELET VOLUME 9.7 fl (9.6-12.3); PLATELET COUNT AUTOMATED 384 10*3/uL (130-400); RED BLOOD COUNT 3.42 10*6/uL (4.10-5.10); RED CELL DISTRI WIDTH 14.6 % (0-14.5)
[2020-01-06 17:08] LABS: ALBUMIN 2.9 gm/dl (3.1-4.5); ALKALINE PHOSPHATASE 133 U/L (45-117); BUN 27 mg/dl (7-24); CHLORIDE 95 mmol/L (98-107); CREATININE 1.21 mg/dL (0.55-1.02); FREE T4 1.88 ng/dl (0.76-1.46); POTASSIUM 4.8 mmol/L (3.5-5.1); SGOT/AST 15 IU/L (3-35); SGPT/ALT 27 U/L (12-78); SODIUM 129 mmol/L (136-145); TOTAL PROTEIN 6.7 gm/dL (6.4-8.2)
[2020-01-06 17:12] LABS: TROPONIN I < 0.015 ng/ml (<0.045)
[2020-01-06 17:13] LABS: BURR CELLS FEW; OVALOCYTES FEW; PLATELET SUFFICIENCY NORMAL (NORMAL); TOTAL CELLS COUNTED 100 #CELLS
[2020-01-06 17:14] LABS: ACANTHOCYTES FEW
[2020-01-06 17:42] LABS: BACTERIA 3+; BILIRUBIN NEGATIVE (NEGATIVE); BLOOD NEGATIVE (NEGATIVE); CLARITY SL CLOUDY (CLEAR); COLOR YELLOW (YELLOW); GLUCOSE NEGATIVE (NEGATIVE); KETONE NEGATIVE (NEGATIVE); LEUKO ESTERASE 2+ (NEGATIVE); NITRITE POSITIVE (NEGATIVE); SPECIFIC GRAVITY 1.015 (1.005-1.030); UROBILINOGEN 0.2 E.U./dl (0.2-1.0); WBC 31-40 wbc/hpf (0-5)
[2020-01-06] MEDS ORDERED: MACROBID100 M1 PO (17:55)
== END 2020-01-06 17:58 | disposition home or self-care (01) ==
LOC: ED 15:49
PROVIDERS: Emergency Medicine
DX: N39.0 Urinary tract infection, site not specified (principal); J45.909 Unspecified asthma, uncomplicated; E11.9 Type 2 diabetes mellitus without complications; K21.9 Gastro-esophageal reflux disease without esophagitis; I10 Essential (primary) hypertension; M19.90 Unspecified osteoarthritis, unspecified site; J44.9 Chronic obstructive pulmonary disease, unspecified; Z91.041 Radiographic dye allergy status; Z79.899 Other long term (current) drug therapy; Z87.891 Personal history of nicotine dependence

== ENCOUNTER → 2020-05-03 | Outpatient (CLI) | payer MEDICARE, OTHER ==
[~2020-05-03] MED LIST changes: +MACROBID100 M1 PO
[2020-05-03 10:59] LABS: BILIRUBIN Negative; CLARITY Cloudy (CLEAR); COLOR Yellow (YELLOW); GLUCOSE Negative; KETONE Negative
[2020-05-03 11:00] LABS: BLOOD Negative (NEGATIVE); LEUKO ESTERASE 1+ (NEGATIVE); NITRITE Negative (NEGATIVE); PH 7.5 (4.5-8.0)
[2020-05-03 11:08] LABS: BACTERIA 3+; CALCIUM OXALATE CRYSTALS 2+
[2020-05-03 11:16] LABS: ALBUMIN 3.3 gm/dl (3.1-4.5); BILIRUBIN, DIRECT < 0.1 mg/dL (0.0-0.2); BUN 17 mg/dl (7-24); CHLORIDE 94 mmol/L (98-107); CHOLESTEROL 189 mg/dL (<200); CREATININE 0.94 mg/dL (0.55-1.02); POTASSIUM 4.8 mmol/L (3.5-5.1); SGOT/AST 20 IU/L (3-35); SGPT/ALT 28 U/L (12-78); SODIUM 125 mmol/L (136-145); TOTAL PROTEIN 7.6 gm/dL (6.4-8.2); TRIGLYCERIDES 51 mg/dl (<150); VLDL CHOLESTEROL 10 mg/dL (6-40)
[2020-05-03 11:23] LABS: ALKALINE PHOSPHATASE 124 U/L (45-117); FREE T4 1.51 ng/dl (0.76-1.46); HDL CHOLESTEROL 113 mg/dl (40-60); LDL CHOLESTEROL 66 mg/dL (9-159); THYROID STIM HORMONE (HS) 0.114 uIU/ml (0.358-4.75)
== END | disposition home or self-care (01) ==
LOC: LAB 10:04
PROVIDERS: Internal Medicine; ATTEND Family Medicine
DX: M17.12 Unilateral primary osteoarthritis, left knee (principal); M25.762 Osteophyte, left knee; E11.9 Type 2 diabetes mellitus without complications; E78.5 Hyperlipidemia, unspecified; E03.9 Hypothyroidism, unspecified; C73 Malignant neoplasm of thyroid gland; E55.9 Vitamin D deficiency, unspecified

== ENCOUNTER → 2020-06-18 | Outpatient (CLI) | payer MEDICARE, OTHER | END | disposition home or self-care (01) | LOC: COVID19 01:01 | PROVIDERS: ATTEND Family Medicine | DX: Z20.828 Contact with and (suspected) exposure to other viral communicable diseases (principal) ==

== ENCOUNTER → 2020-09-02 | Outpatient (CLI) | payer MEDICARE, OTHER | END | disposition home or self-care (01) | LOC: RAD 15:03 | PROVIDERS: ATTEND Family Medicine | DX: R07.89 Other chest pain (principal) ==

== ENCOUNTER → 2020-11-11 | Outpatient (CLI) | payer MEDICARE, OTHER ==
[~2020-11-11] MED LIST changes: +DOXYCYCLINE100 MG PO; +PREDNISONE10 M1 PO
[2020-11-11 18:12] LABS: BASO # 0.1 10*3/uL (0.0-0.1); BASO % 1.2 % (0.0-1.0); EOS # 0.5 10*3/uL (0.0-0.4); EOS % 6.4 % (1.0-4.0); HEMATOCRIT 36.3 % (37.0-47.0); LYMPH # 1.7 10*3/uL (1.3-4.4); LYMPH % 20.1 % (27.0-41.0); MEAN CELL VOLUME 85.8 fl (81.0-99.0); MEAN CORPUSCULAR HGB 27.2 pg (27.0-31.0); MEAN CORPUSCULAR HGB CONC 31.7 g/dl (33.0-37.0); MEAN PLATELET VOLUME 10.1 fl (9.6-12.3); MONO # 1.1 10*3/uL (0.1-1.0); MONO % 13.4 % (3.0-9.0); NEUT # 4.9 10*3/uL (2.3-7.9); NEUT % 57.9 % (47.0-73.0); PLATELET COUNT AUTOMATED 381 10*3/uL (130-400); RED BLOOD COUNT 4.23 10*6/uL (4.10-5.10); RED CELL DISTRI WIDTH 13.6 % (0-14.5); WHITE BLOOD COUNT 8.4 10*3/uL (4.8-10.8)
[2020-11-11 18:43] LABS: ALBUMIN 3.3 gm/dl (3.1-4.5); ALKALINE PHOSPHATASE 109 U/L (45-117); BUN 21 mg/dl (7-24); CHLORIDE 100 mmol/L (98-107); CHOLESTEROL 230 mg/dL (<200); CREATININE 1.06 mg/dL (0.55-1.02); HDL CHOLESTEROL 122 mg/dl (40-60); LDL CHOLESTEROL 91 mg/dL (9-159); SGOT/AST 15 IU/L (3-35); SGPT/ALT 26 U/L (12-78); SODIUM 135 mmol/L (136-145); TOTAL PROTEIN 7.3 gm/dL (6.4-8.2); TRIGLYCERIDES 84 mg/dl (<150); VLDL CHOLESTEROL 17 mg/dL (6-40)
== END | disposition home or self-care (01) ==
LOC: LAB 15:02
PROVIDERS: ATTEND Family Medicine
DX: E11.43 Type 2 diabetes mellitus with diabetic autonomic (poly)neuropathy (principal); R53.83 Other fatigue; R20.0 Anesthesia of skin; R20.2 Paresthesia of skin; I10 Essential (primary) hypertension; E78.1 Pure hyperglyceridemia; E55.9 Vitamin D deficiency, unspecified

== ENCOUNTER 2020-12-02 17:26 | Emergency (ER) | payer MEDICARE, OTHER ==
[~2020-12-02] VITALS: Ht 165.1 cm; Wt 92.1 kg
[~2020-12-02 17:26] MED LIST changes: -DOXYCYCLINE100 MG PO; -PREDNISONE10 M1 PO
[2020-12-02 21:52] LABS: BASO # 0.1 10*3/uL (0.0-0.1); EOS # 1.1 10*3/uL (0.0-0.4); EOS % 10.6 % (1.0-4.0); HEMATOCRIT 34.2 % (37.0-47.0); LYMPH # 1.9 10*3/uL (1.3-4.4); LYMPH % 18.6 % (27.0-41.0); MEAN CELL VOLUME 86.4 fl (81.0-99.0); MEAN CORPUSCULAR HGB 27.8 pg (27.0-31.0); MEAN CORPUSCULAR HGB CONC 32.2 g/dl (33.0-37.0); MEAN PLATELET VOLUME 9.6 fl (9.6-12.3); MONO # 1.1 10*3/uL (0.1-1.0); MONO % 10.6 % (3.0-9.0); NEUT # 5.9 10*3/uL (2.3-7.9); NEUT % 58.4 % (47.0-73.0); PLATELET COUNT AUTOMATED 355 10*3/uL (130-400); RED BLOOD COUNT 3.96 10*6/uL (4.10-5.10); RED CELL DISTRI WIDTH 13.2 % (0-14.5); WHITE BLOOD COUNT 10.1 10*3/uL (4.8-10.8)
[2020-12-02 22:09] LABS: ALBUMIN 3.2 gm/dl (3.1-4.5); ALKALINE PHOSPHATASE 123 U/L (45-117); BUN 21 mg/dl (7-24); CHLORIDE 95 mmol/L (98-107); CREATININE 1.18 mg/dL (0.55-1.02); SGOT/AST 23 IU/L (3-35); SGPT/ALT 37 U/L (12-78); SODIUM 132 mmol/L (136-145); TOTAL PROTEIN 6.9 gm/dL (6.4-8.2)
[2020-12-02 22:11] LABS: TROPONIN I < 0.015 ng/ml (<0.045)
[2020-12-02 22:14] VITALS: BP 141/86
[2020-12-03] MEDS ORDERED: DOXYCYCLINE100 MG PO (01:48)
[2020-12-03] MEDS ORDERED: PREDNISONE10 M1 PO (01:48)
== END 2020-12-03 02:10 | disposition home or self-care (01) ==
LOC: ED 17:26
PROVIDERS: Emergency Medicine
DX: J44.1 Chronic obstructive pulmonary disease with (acute) exacerbation (principal); I10 Essential (primary) hypertension; E11.9 Type 2 diabetes mellitus without complications; Z87.891 Personal history of nicotine dependence; Z98.51 Tubal ligation status; Z79.899 Other long term (current) drug therapy; Z91.041 Radiographic dye allergy status

== ENCOUNTER → 2020-12-07 | Outpatient (CLI) | payer MEDICARE, OTHER ==
[~2020-12-07] MED LIST changes: +DOXYCYCLINE100 MG PO; +PREDNISONE10 M1 PO
[2020-12-07 10:53] LABS: BILIRUBIN Negative (Negative); BLOOD Negative (Negative); CLARITY Cloudy (Clear); COLOR Dark Yellow (Yellow); GLUCOSE Negative (Negative); KETONE Trace (Negative); LEUKO ESTERASE 1+ (Negative); NITRITE Negative (Negative); SPECIFIC GRAVITY >= 1.030 (1.001-1.030)
[2020-12-07 11:18] LABS: BACTERIA 1+; CALCIUM OXALATE CRYSTALS 4+; MUCOUS 1+
[2020-12-07 11:27] LABS: ALBUMIN 3.3 gm/dl (3.1-4.5); BUN 20 mg/dl (7-24); CHLORIDE 93 mmol/L (98-107); POTASSIUM 4.7 mmol/L (3.5-5.1); SODIUM 129 mmol/L (136-145)
[2020-12-07 11:37] LABS: ALKALINE PHOSPHATASE 98 U/L (45-117); BILIRUBIN, DIRECT < 0.1 mg/dL (0.0-0.2); CHOLESTEROL 221 mg/dL (<200); FREE T4 1.63 ng/dl (0.76-1.46); LDL CHOLESTEROL 85 mg/dL (9-159); SGOT/AST 18 IU/L (3-35); SGPT/ALT 31 U/L (12-78); TRIGLYCERIDES 76 mg/dl (<150)
== END | disposition home or self-care (01) ==
LOC: LAB 09:45
PROVIDERS: ATTEND Internal Medicine
DX: E11.9 Type 2 diabetes mellitus without complications (principal); E78.5 Hyperlipidemia, unspecified; E55.9 Vitamin D deficiency, unspecified; E03.9 Hypothyroidism, unspecified

== ENCOUNTER → 2020-12-10 | Outpatient (CLI) | payer MEDICARE, OTHER | END | disposition home or self-care (01) | LOC: RAD 16:11 | PROVIDERS: ATTEND Family Medicine | DX: M19.022 Primary osteoarthritis, left elbow (principal); M19.071 Primary osteoarthritis, right ankle and foot; M77.31 Calcaneal spur, right foot; R60.0 Localized edema; S89.91XA Unspecified injury of right lower leg, initial encounter; S59.902A Unspecified injury of left elbow, initial encounter; S99.911A Unspecified injury of right ankle, initial encounter; Z96.651 Presence of right artificial knee joint; Z98.890 Other specified postprocedural states; X58.XXXA Exposure to other specified factors, initial encounter; Y93.89 Activity, other specified; Y92.89 Other specified places as the place of occurrence of the external cause; Y99.8 Other external cause status ==

== ENCOUNTER 2021-01-06 17:13 | Inpatient (IN) | payer MEDICARE, OTHER ==
[~2021-01-06] VITALS: Ht 162.5 cm; Wt 89.4 kg
[2021-01-06 17:38] LABS: BASO # 0.1 10*3/uL (0.0-0.1); BASO % 0.9 % (0.0-1.0); EOS # 0.9 10*3/uL (0.0-0.4); HEMATOCRIT 35.6 % (37.0-47.0); LYMPH # 2.5 10*3/uL (1.3-4.4); LYMPH % 20.5 % (27.0-41.0); MEAN CELL VOLUME 83.8 fl (81.0-99.0); MEAN CORPUSCULAR HGB 27.8 pg (27.0-31.0); MEAN CORPUSCULAR HGB CONC 33.1 g/dl (33.0-37.0); MEAN PLATELET VOLUME 9.2 fl (9.6-12.3); MONO # 1.3 10*3/uL (0.1-1.0); MONO % 10.4 % (3.0-9.0); NEUT # 7.4 10*3/uL (2.3-7.9); PLATELET COUNT AUTOMATED 491 10*3/uL (130-400); RED BLOOD COUNT 4.25 10*6/uL (4.10-5.10); RED CELL DISTRI WIDTH 12.1 % (0-14.5); WHITE BLOOD COUNT 12.4 10*3/uL (4.8-10.8)
[2021-01-06 17:50] VITALS: BP 107/66
[2021-01-06 18:03] LABS: ALBUMIN 3.1 gm/dl (3.1-4.5); ALKALINE PHOSPHATASE 128 U/L (45-117); BUN 15 mg/dl (7-24); CHLORIDE 97 mmol/L (98-107); CREATININE 1.16 mg/dL (0.55-1.02); POTASSIUM 4.2 mmol/L (3.5-5.1); SGOT/AST 22 IU/L (3-35); SGPT/ALT 25 U/L (12-78); SODIUM 128 mmol/L (136-145); TOTAL PROTEIN 7.7 gm/dL (6.4-8.2)
[2021-01-06 18:04] LABS: TROPONIN I < 0.015 ng/ml (<0.045)
[2021-01-06 18:54] VITALS: BP 110/62
[2021-01-06 20:30] VITALS: BP 128/72
[2021-01-06 22:00] VITALS: BP 122/58; BP 128/72
[2021-01-06 22:30] VITALS: BP 164/86
[2021-01-06] MEDS ORDERED: VISTARIL50 MG PO (22:56)
[2021-01-06] MEDS ORDERED: METOPROLOL25 MG PO (22:57)
[2021-01-06] MEDS ORDERED: MAGNESIUM500 MG PO (23:01)
[2021-01-06] MEDS ORDERED: LEVOTHYROXINE125 MC1 PO (23:02)
[2021-01-06] MEDS ORDERED: CENTRAL-VITE1 EACH PO (23:03)
[2021-01-07] VITALS: BP 164/86
[2021-01-07 06:11] LABS: ALBUMIN 3.1 gm/dl (3.1-4.5); CREATININE 1.42 mg/dL (0.55-1.02); POTASSIUM 4.9 mmol/L (3.5-5.1); TOTAL PROTEIN 7.5 gm/dL (6.4-8.2)
[2021-01-07 06:14] LABS: BASO % 0.3 % (0.0-1.0); EOS % 0.1 % (1.0-4.0); HEMATOCRIT 36.3 % (37.0-47.0); LYMPH # 0.9 10*3/uL (1.3-4.4); LYMPH % 8.2 % (27.0-41.0); MEAN CORPUSCULAR HGB CONC 32.5 g/dl (33.0-37.0); MEAN PLATELET VOLUME 9.2 fl (9.6-12.3); MONO # 0.1 10*3/uL (0.1-1.0); MONO % 1.3 % (3.0-9.0); NEUT # 9.8 10*3/uL (2.3-7.9); NEUT % 87.9 % (47.0-73.0); PLATELET COUNT AUTOMATED 465 10*3/uL (130-400); RED BLOOD COUNT 4.22 10*6/uL (4.10-5.10); WHITE BLOOD COUNT 11.2 10*3/uL (4.8-10.8)
[2021-01-07 08:04] VITALS: BP 125/75
[2021-01-07 11:47] VITALS: BP 141/75
[2021-01-07 16:07] VITALS: BP 112/70
[2021-01-07 20:00] VITALS: BP 126/71
[2021-01-08] VITALS: BP 129/78
[2021-01-08 06:27] LABS: BASO % 0.1 % (0.0-1.0); HEMATOCRIT 32.6 % (37.0-47.0); LYMPH # 0.8 10*3/uL (1.3-4.4); LYMPH % 4.5 % (27.0-41.0); MEAN CELL VOLUME 84.7 fl (81.0-99.0); MEAN CORPUSCULAR HGB 27.5 pg (27.0-31.0); MEAN CORPUSCULAR HGB CONC 32.5 g/dl (33.0-37.0); MEAN PLATELET VOLUME 9.3 fl (9.6-12.3); MONO # 0.9 10*3/uL (0.1-1.0); MONO % 5.1 % (3.0-9.0); NEUT % 88.9 % (47.0-73.0); PLATELET COUNT AUTOMATED 469 10*3/uL (130-400); RED BLOOD COUNT 3.85 10*6/uL (4.10-5.10); RED CELL DISTRI WIDTH 12.3 % (0-14.5)
[2021-01-08 06:39] LABS: ALBUMIN 2.7 gm/dl (3.1-4.5); CREATININE 1.11 mg/dL (0.55-1.02); POTASSIUM 4.6 mmol/L (3.5-5.1); TOTAL PROTEIN 7.1 gm/dL (6.4-8.2)
[2021-01-08 08:00] VITALS: BP 129/80
[2021-01-08 12:00] VITALS: BP 131/79
[2021-01-08 16:00] VITALS: BP 116/68
[2021-01-08 18:41] LABS: BILIRUBIN Negative (Negative); BLOOD Negative (Negative); CLARITY Clear (Clear); COLOR Yellow (Yellow); GLUCOSE 3+ (Negative); KETONE Negative (Negative); LEUKO ESTERASE Negative (Negative); NITRITE Negative (Negative); PH 6.5 (4.5-8.0); SPECIFIC GRAVITY 1.025 (1.001-1.030); UROBILINOGEN 0.2 E.U./dl (0.0-1.0)
[2021-01-08 18:49] LABS: BACTERIA TRACE; RBC 0-2 rbc/hpf (0-2)
[2021-01-08 20:00] VITALS: BP 126/71
[2021-01-09] VITALS: BP 117/63
[2021-01-09 06:58] LABS: HEMATOCRIT 33.5 % (37.0-47.0); MEAN CELL VOLUME 85.7 fl (81.0-99.0); MEAN CORPUSCULAR HGB 27.1 pg (27.0-31.0); MEAN CORPUSCULAR HGB CONC 31.6 g/dl (33.0-37.0); MEAN PLATELET VOLUME 9.5 fl (9.6-12.3); PLATELET COUNT AUTOMATED 482 10*3/uL (130-400); RED BLOOD COUNT 3.91 10*6/uL (4.10-5.10); RED CELL DISTRI WIDTH 12.7 % (0-14.5); WHITE BLOOD COUNT 16.6 10*3/uL (4.8-10.8)
[2021-01-09 07:14] LABS: TOTAL CELLS COUNTED 100 #CELLS
[2021-01-09 07:18] LABS: BURR CELLS FEW; MICROCYTOSIS SLIGHT; OVALOCYTES FEW; PLATELET SUFFICIENCY HIGH (NORMAL)
[2021-01-09 07:24] LABS: BUN 25 mg/dl (7-24); CHLORIDE 102 mmol/L (98-107); CREATININE 1.01 mg/dL (0.55-1.02); POTASSIUM 4.7 mmol/L (3.5-5.1); SODIUM 131 mmol/L (136-145)
[2021-01-09 08:00] VITALS: BP 148/86
[2021-01-09 12:00] VITALS: BP 147/83
[2021-01-09 16:00] VITALS: BP 128/91
[2021-01-09 20:00] VITALS: BP 143/72
[2021-01-10] VITALS: BP 142/81
[2021-01-10 08:00] VITALS: BP 149/78
[2021-01-10 11:37] VITALS: BP 155/89
[2021-01-10 16:00] VITALS: BP 140/94
[2021-01-10 20:00] VITALS: BP 145/83
[2021-01-11] VITALS: BP 152/81
[2021-01-11 08:00] VITALS: BP 145/76
[2021-01-11] MEDS ORDERED: LISINOPRIL10 M1 PO (10:41)
[2021-01-11] MEDS ORDERED: PREDNISONE10 MG PO (10:41)
[2021-01-11] MEDS ORDERED: ZITHROMAX500 MG PO (10:42)
[2021-01-11] MEDS ORDERED: OMNICEF300 MG PO ×2 (10:43)
[2021-01-18] MEDS ORDERED: ATORVASTATIN CA40 M1 PO (10:55)
[2021-01-18] MEDS ORDERED: IMDUR SA30 MG PO (10:55)
[2021-01-18] MEDS ORDERED: ASPIRIN ADULT L81 M2 PO (10:55)
[2021-01-18] MEDS ORDERED: PREDNISONE10 MG PO (10:58)
== END 2021-01-11 12:57 | disposition home or self-care (01) | DRG 189 ==
LOC: ED 17:13 → EDHOLD 19:35 → 5E 19:35 → EDHOLD 20:26 → 5E 21:15
PROVIDERS: Emergency Medicine; Internal Medicine; Student in an Organized Health Care Education/Training Program; ADMIT Family Medicine; ATTEND Family Medicine
DX: J96.21 Acute and chronic respiratory failure with hypoxia (principal); N17.0 Acute kidney failure with tubular necrosis; J44.1 Chronic obstructive pulmonary disease with (acute) exacerbation; E44.0 Moderate protein-calorie malnutrition; E87.1 Hypo-osmolality and hyponatremia; J44.0 Chronic obstructive pulmonary disease with (acute) lower respiratory infection; J45.901 Unspecified asthma with (acute) exacerbation; D64.9 Anemia, unspecified; N18.31 Chronic kidney disease, stage 3a; F32.9 Major depressive disorder, single episode, unspecified; J20.9 Acute bronchitis, unspecified; E87.8 Other disorders of electrolyte and fluid balance, not elsewhere classified; E11.22 Type 2 diabetes mellitus with diabetic chronic kidney disease; I12.9 Hypertensive chronic kidney disease with stage 1 through stage 4 chronic kidney disease, or unspecified chronic kidney disease; F41.9 Anxiety disorder, unspecified; E55.9 Vitamin D deficiency, unspecified; E11.65 Type 2 diabetes mellitus with hyperglycemia; E66.9 Obesity, unspecified; K21.9 Gastro-esophageal reflux disease without esophagitis; E78.00 Pure hypercholesterolemia, unspecified; I25.10 Atherosclerotic heart disease of native coronary artery without angina pectoris; K44.9 Diaphragmatic hernia without obstruction or gangrene; Z91.041 Radiographic dye allergy status; Z91.048 Other nonmedicinal substance allergy status; Z98.51 Tubal ligation status; Z87.891 Personal history of nicotine dependence; Z82.49 Family history of ischemic heart disease and other diseases of the circulatory system; Z80.1 Family history of malignant neoplasm of trachea, bronchus and lung; Z80.8 Family history of malignant neoplasm of other organs or systems; Z83.3 Family history of diabetes mellitus; Z82.5 Family history of asthma and other chronic lower respiratory diseases; Z82.0 Family history of epilepsy and other diseases of the nervous system; Z85.3 Personal history of malignant neoplasm of breast; Z85.850 Personal history of malignant neoplasm of thyroid; Z90.12 Acquired absence of left breast and nipple; Z79.899 Other long term (current) drug therapy; Z68.33 Body mass index [BMI] 33.0-33.9, adult

== ENCOUNTER 2021-02-21 16:35 | Inpatient (IN) | payer MEDICARE, OTHER ==
[~2021-02-21] VITALS: Ht 162.5 cm; Wt 91.7 kg
[~2021-02-21 16:35] MED LIST changes: +ASPIRIN ADULT L81 M2 PO; +ATORVASTATIN CA40 M1 PO; +CENTRAL-VITE1 EACH PO; +IMDUR SA30 MG PO; +LEVOTHYROXINE125 MC1 PO; +LISINOPRIL10 M1 PO; +MAGNESIUM500 MG PO; +METOPROLOL25 MG PO; +OMNICEF300 MG PO; +VISTARIL50 MG PO; +ZITHROMAX500 MG PO
[2021-02-21 16:49] VITALS: BP 136/67
[2021-02-21 17:07] LABS: BASO # 0.1 10*3/uL (0.0-0.1); BASO % 1.1 % (0.0-1.0); EOS # 0.4 10*3/uL (0.0-0.4); EOS % 4.2 % (1.0-4.0); HEMATOCRIT 34.9 % (37.0-47.0); LYMPH % 20.8 % (27.0-41.0); MEAN CELL VOLUME 85.7 fl (81.0-99.0); MEAN CORPUSCULAR HGB CONC 32.7 g/dl (33.0-37.0); MEAN PLATELET VOLUME 9.7 fl (9.6-12.3); MONO # 1.2 10*3/uL (0.1-1.0); MONO % 12.8 % (3.0-9.0); NEUT # 5.7 10*3/uL (2.3-7.9); NEUT % 59.7 % (47.0-73.0); PLATELET COUNT AUTOMATED 360 10*3/uL (130-400); RED BLOOD COUNT 4.07 10*6/uL (4.10-5.10); WHITE BLOOD COUNT 9.5 10*3/uL (4.8-10.8)
[2021-02-21 17:23] LABS: ALBUMIN 3.2 gm/dl (3.1-4.5); ALKALINE PHOSPHATASE 106 U/L (45-117); BUN 16 mg/dl (7-24); CHLORIDE 96 mmol/L (98-107); CREATININE 0.98 mg/dL (0.55-1.02); POTASSIUM 4.3 mmol/L (3.5-5.1); SGOT/AST 20 IU/L (3-35); SGPT/ALT 30 U/L (12-78); SODIUM 128 mmol/L (136-145); TOTAL PROTEIN 6.8 gm/dL (6.4-8.2)
[2021-02-21] MEDS ORDERED: TRELEGY ELLIPT1 EACH INH (17:28)
[2021-02-21 17:29] LABS: TROPONIN I < 0.015 ng/ml (<0.045)
[2021-02-21] MEDS ORDERED: PROVENTIL HFA6.7 GM INH (17:29)
[2021-02-21] MEDS ORDERED: ATORVASTATIN CA20 M1 PO (17:32)
[2021-02-21] MEDS ORDERED: ZYRTEC10 M3 PO (17:42)
[2021-02-21] MEDS ORDERED: ZESTRIL10 MG PO (17:42)
[2021-02-21 17:43] VITALS: BP 106/76
[2021-02-21] MEDS ORDERED: VITAMIN D350 MC3 PO (17:43)
[2021-02-21 19:29] VITALS: BP 108/65
[2021-02-21 21:45] VITALS: BP 100/73
[2021-02-22 04:32] LABS: BASO # 0.1 10*3/uL (0.0-0.1); EOS # 0.4 10*3/uL (0.0-0.4); EOS % 4.1 % (1.0-4.0); HEMATOCRIT 36.8 % (37.0-47.0); LYMPH # 1.8 10*3/uL (1.3-4.4); LYMPH % 17.2 % (27.0-41.0); MEAN CORPUSCULAR HGB 27.5 pg (27.0-31.0); MEAN PLATELET VOLUME 9.9 fl (9.6-12.3); MONO # 1.3 10*3/uL (0.1-1.0); MONO % 12.2 % (3.0-9.0); NEUT # 6.8 10*3/uL (2.3-7.9); NEUT % 64.2 % (47.0-73.0); PLATELET COUNT AUTOMATED 322 10*3/uL (130-400); RED BLOOD COUNT 4.14 10*6/uL (4.10-5.10); RED CELL DISTRI WIDTH 13.4 % (0-14.5); WHITE BLOOD COUNT 10.5 10*3/uL (4.8-10.8)
[2021-02-22 04:42] LABS: MEAN CELL VOLUME 88.9 fl (81.0-99.0)
[2021-02-22 05:02] LABS: ALBUMIN 3.2 gm/dl (3.1-4.5); ALKALINE PHOSPHATASE 110 U/L (45-117); BUN 14 mg/dl (7-24); CHLORIDE 94 mmol/L (98-107); CHOLESTEROL 186 mg/dL (<200); CREATININE 0.83 mg/dL (0.55-1.02); LDL CHOLESTEROL 61 mg/dL (9-159); POTASSIUM 4.5 mmol/L (3.5-5.1); SGOT/AST 23 IU/L (3-35); SGPT/ALT 31 U/L (12-78); SODIUM 126 mmol/L (136-145); TOTAL PROTEIN 6.2 gm/dL (6.4-8.2); TRIGLYCERIDES 70 mg/dl (<150)
[2021-02-22 05:04] LABS: FREE T4 1.31 ng/dl (0.76-1.46)
[2021-02-22 06:13] VITALS: BP 104/50
[2021-02-22 08:43] LABS: VITAMIN D, 25-HYDROXY 63.8 ng/mL (30-100)
[2021-02-22 10:53] VITALS: BP 119/51
[2021-02-22 12:00] LABS: BILIRUBIN Negative (Negative); BLOOD Negative (Negative); CLARITY Clear (Clear); COLOR Yellow (Yellow); GLUCOSE Negative (Negative); KETONE Negative (Negative); LEUKO ESTERASE Negative (Negative); NITRITE Negative (Negative); PH 6.5 (4.5-8.0); SPECIFIC GRAVITY <= 1.005 (1.001-1.030); UROBILINOGEN 0.2 E.U./dl (0.0-1.0)
[2021-02-22 13:01] VITALS: BP 118/74
[2021-02-22 14:12] LABS: EPITHELIAL CELLS 0-2
[2021-02-22 16:00] VITALS: BP 129/72
[2021-02-22 20:00] VITALS: BP 113/68
[2021-02-23] VITALS: BP 147/81
[2021-02-23 06:47] LABS: BUN 13 mg/dl (7-24); CHLORIDE 95 mmol/L (98-107); CREATININE 0.89 mg/dL (0.55-1.02); POTASSIUM 3.8 mmol/L (3.5-5.1); SODIUM 127 mmol/L (136-145)
[2021-02-23 08:00] VITALS: BP 125/74
[2021-02-23 12:00] VITALS: BP 106/49
== END 2021-02-23 15:23 | disposition home or self-care (01) | DRG 392 ==
LOC: ED 16:35 → EDHOLD 17:52 → 4E 17:52
PROVIDERS: Emergency Medicine; Internal Medicine; Internal Medicine Nephrology; ADMIT Internal Medicine; ATTEND Internal Medicine
DX: K21.9 Gastro-esophageal reflux disease without esophagitis (principal); E87.1 Hypo-osmolality and hyponatremia; J96.10 Chronic respiratory failure, unspecified whether with hypoxia or hypercapnia; M94.0 Chondrocostal junction syndrome [Tietze]; E87.8 Other disorders of electrolyte and fluid balance, not elsewhere classified; D64.9 Anemia, unspecified; F32.9 Major depressive disorder, single episode, unspecified; E55.9 Vitamin D deficiency, unspecified; F41.9 Anxiety disorder, unspecified; J44.9 Chronic obstructive pulmonary disease, unspecified; I12.9 Hypertensive chronic kidney disease with stage 1 through stage 4 chronic kidney disease, or unspecified chronic kidney disease; E89.0 Postprocedural hypothyroidism; N18.30 Chronic kidney disease, stage 3 unspecified; E11.22 Type 2 diabetes mellitus with diabetic chronic kidney disease; I25.118 Atherosclerotic heart disease of native coronary artery with other forms of angina pectoris; Z91.041 Radiographic dye allergy status; Z91.048 Other nonmedicinal substance allergy status; Z98.51 Tubal ligation status; Z90.12 Acquired absence of left breast and nipple; Z87.891 Personal history of nicotine dependence; Z82.49 Family history of ischemic heart disease and other diseases of the circulatory system; Z80.1 Family history of malignant neoplasm of trachea, bronchus and lung; Z80.8 Family history of malignant neoplasm of other organs or systems; Z83.3 Family history of diabetes mellitus; Z82.5 Family history of asthma and other chronic lower respiratory diseases; Z82.0 Family history of epilepsy and other diseases of the nervous system; Z92.21 Personal history of antineoplastic chemotherapy; Z92.3 Personal history of irradiation; Z85.3 Personal history of malignant neoplasm of breast; Z79.899 Other long term (current) drug therapy; Z79.82 Long term (current) use of aspirin

== ENCOUNTER 2021-04-03 18:10 | Emergency (ER) | payer MEDICARE, OTHER ==
[~2021-04-03 18:10] MED LIST changes: +ATORVASTATIN CA20 M1 PO; +PROVENTIL HFA6.7 GM INH; +VITAMIN D350 MC3 PO; +ZESTRIL10 MG PO; +ZYRTEC10 M3 PO
[2021-04-03 18:24] LABS: BASO # 0.1 10*3/uL (0.0-0.1); EOS # 0.7 10*3/uL (0.0-0.4); EOS % 9.4 % (1.0-4.0); LYMPH # 1.4 10*3/uL (1.3-4.4); LYMPH % 19.3 % (27.0-41.0); MEAN CORPUSCULAR HGB CONC 33.3 g/dl (33.0-37.0); MEAN PLATELET VOLUME 9.7 fl (9.6-12.3); MONO # 0.9 10*3/uL (0.1-1.0); NEUT % 56.9 % (47.0-73.0); PLATELET COUNT AUTOMATED 334 10*3/uL (130-400); RED BLOOD COUNT 3.93 10*6/uL (4.10-5.10); RED CELL DISTRI WIDTH 12.8 % (0-14.5)
[2021-04-03 18:41] LABS: ALBUMIN 3.3 gm/dl (3.1-4.5); ALKALINE PHOSPHATASE 131 U/L (45-117); BUN 10 mg/dl (7-24); CHLORIDE 95 mmol/L (98-107); CREATININE 0.91 mg/dL (0.55-1.02); SGOT/AST 26 IU/L (3-35); SGPT/ALT 34 U/L (12-78); SODIUM 129 mmol/L (136-145); TOTAL PROTEIN 6.8 gm/dL (6.4-8.2)
[2021-04-03 18:43] LABS: TROPONIN I < 0.015 ng/ml (<0.045)
[2021-04-03 19:34] VITALS: BP 141/78
[2021-04-19] MEDS ORDERED: PLAVIX75 M1 PO (13:12)
== END 2021-04-03 23:41 | disposition home or self-care (01) ==
LOC: ED 18:10
PROVIDERS: Emergency Medicine
DX: R07.89 Other chest pain (principal); R20.0 Anesthesia of skin; R20.2 Paresthesia of skin; D64.9 Anemia, unspecified; K44.9 Diaphragmatic hernia without obstruction or gangrene; R11.0 Nausea; E11.9 Type 2 diabetes mellitus without complications; E66.9 Obesity, unspecified; Z91.041 Radiographic dye allergy status; Z91.040 Latex allergy status; Z79.899 Other long term (current) drug therapy; Z79.82 Long term (current) use of aspirin; Z98.51 Tubal ligation status; Z98.890 Other specified postprocedural states; Z87.891 Personal history of nicotine dependence

== ENCOUNTER → 2021-04-25 | Day surgery (SDC) | payer MEDICARE, OTHER ==
[~2021-04-25] VITALS: Ht 162.5 cm; Wt 93.4 kg
[~2021-04-25] MED LIST changes: +AVPAK AZITHROM250 M1 PO; +PLAVIX75 M1 PO
[2021-04-25 09:03] VITALS: BP 135/75
[2021-04-25 09:28] VITALS: BP 149/90
[2021-04-25 09:43] VITALS: BP 159/80
[2021-04-25 10:15] VITALS: BP 149/90
== END | disposition home or self-care (01) ==
LOC: SDC 04-21 09:30
PROVIDERS: ATTEND Surgery
DX: Z12.11 Encounter for screening for malignant neoplasm of colon (principal); D12.3 Benign neoplasm of transverse colon; K29.50 Unspecified chronic gastritis without bleeding; K21.9 Gastro-esophageal reflux disease without esophagitis; E11.9 Type 2 diabetes mellitus without complications; I10 Essential (primary) hypertension; F32.9 Major depressive disorder, single episode, unspecified; F41.9 Anxiety disorder, unspecified; J44.9 Chronic obstructive pulmonary disease, unspecified; M19.90 Unspecified osteoarthritis, unspecified site; Z85.3 Personal history of malignant neoplasm of breast; Z85.850 Personal history of malignant neoplasm of thyroid; Z79.899 Other long term (current) drug therapy; Z20.822 Contact with and (suspected) exposure to COVID-19

== ENCOUNTER → 2021-05-03 | Outpatient (CLI) | payer MEDICARE, OTHER ==
[2021-05-03 10:56] LABS: ALBUMIN 3.3 gm/dl (3.1-4.5); CREATININE 1.25 mg/dL (0.55-1.02); FREE T4 1.46 ng/dl (0.76-1.46); POTASSIUM 4.2 mmol/L (3.5-5.1); TOTAL PROTEIN 6.9 gm/dL (6.4-8.2)
[2021-05-03 11:01] LABS: THYROID STIM HORMONE (HS) 4.53 uIU/ml (0.358-4.75)
[2021-05-04 04:06] LABS: THYROID PEROXIDASE (TPO) AB <8 IU/mL (0-34)
[2021-05-04 16:09] LABS: THYROGLOBULIN ANTIBODY <1.0 IU/mL (0.0-0.9)
== END | disposition home or self-care (01) ==
LOC: LAB 09:52
PROVIDERS: ATTEND Internal Medicine
DX: E78.5 Hyperlipidemia, unspecified (principal); E11.9 Type 2 diabetes mellitus without complications; C73 Malignant neoplasm of thyroid gland; E03.9 Hypothyroidism, unspecified; E55.9 Vitamin D deficiency, unspecified

== ENCOUNTER 2021-05-07 16:59 | Inpatient (IN) | payer MEDICARE, OTHER ==
[~2021-05-07] VITALS: Wt 92.3 kg
[~2021-05-07 16:59] MED LIST changes: -AVPAK AZITHROM250 M1 PO
[2021-05-07 17:06] VITALS: BP 118/67
[2021-05-07 17:55] LABS: BASO # 0.1 10*3/uL (0.0-0.1); BASO % 0.7 % (0.0-1.0); EOS # 0.4 10*3/uL (0.0-0.4); EOS % 3.6 % (1.0-4.0); LYMPH # 0.8 10*3/uL (1.3-4.4); LYMPH % 6.7 % (27.0-41.0); MEAN CELL VOLUME 86.2 fl (81.0-99.0); MEAN CORPUSCULAR HGB 27.7 pg (27.0-31.0); MEAN CORPUSCULAR HGB CONC 32.1 g/dl (33.0-37.0); MEAN PLATELET VOLUME 9.6 fl (9.6-12.3); MONO # 1.3 10*3/uL (0.1-1.0); MONO % 10.5 % (3.0-9.0); NEUT # 9.4 10*3/uL (2.3-7.9); NEUT % 77.9 % (47.0-73.0); PLATELET COUNT AUTOMATED 325 10*3/uL (130-400); RED BLOOD COUNT 3.83 10*6/uL (4.10-5.10); RED CELL DISTRI WIDTH 12.3 % (0-14.5)
[2021-05-07 18:11] LABS: ALBUMIN 3.2 gm/dl (3.1-4.5); ALKALINE PHOSPHATASE 89 U/L (45-117); BUN 17 mg/dl (7-24); CHLORIDE 94 mmol/L (98-107); CREATININE 1.02 mg/dL (0.55-1.02); POTASSIUM 4.6 mmol/L (3.5-5.1); SGOT/AST 15 IU/L (3-35); SGPT/ALT 27 U/L (12-78); SODIUM 128 mmol/L (136-145); TOTAL PROTEIN 6.5 gm/dL (6.4-8.2)
[2021-05-07 22:00] VITALS: BP 101/30
[2021-05-07 22:38] LABS: BILIRUBIN Negative (Negative); BLOOD Negative (Negative); CLARITY Clear (Clear); COLOR Yellow (Yellow); GLUCOSE Trace (Negative); KETONE Trace (Negative); LEUKO ESTERASE Trace (Negative); NITRITE Negative (Negative); SPECIFIC GRAVITY 1.025 (1.001-1.030)
[2021-05-07 23:27] VITALS: BP 101/30
[2021-05-08 02:00] VITALS: BP 93/42
[2021-05-08 06:11] LABS: BASO # 0.1 10*3/uL (0.0-0.1); BASO % 0.8 % (0.0-1.0); EOS # 0.5 10*3/uL (0.0-0.4); EOS % 6.3 % (1.0-4.0); HEMATOCRIT 31.8 % (37.0-47.0); LYMPH # 1.7 10*3/uL (1.3-4.4); MEAN CELL VOLUME 87.4 fl (81.0-99.0); MEAN CORPUSCULAR HGB 27.7 pg (27.0-31.0); MEAN CORPUSCULAR HGB CONC 31.8 g/dl (33.0-37.0); MEAN PLATELET VOLUME 10.3 fl (9.6-12.3); MONO # 1.1 10*3/uL (0.1-1.0); MONO % 14.7 % (3.0-9.0); NEUT # 4.2 10*3/uL (2.3-7.9); NEUT % 55.5 % (47.0-73.0); PLATELET COUNT AUTOMATED 323 10*3/uL (130-400); RED BLOOD COUNT 3.64 10*6/uL (4.10-5.10); RED CELL DISTRI WIDTH 12.1 % (0-14.5); WHITE BLOOD COUNT 7.6 10*3/uL (4.8-10.8)
[2021-05-08 06:31] LABS: BUN 15 mg/dl (7-24); CHLORIDE 96 mmol/L (98-107); POTASSIUM 4.3 mmol/L (3.5-5.1); SODIUM 130 mmol/L (136-145)
[2021-05-08 06:43] LABS: CHOLESTEROL 175 mg/dL (<200); LDL CHOLESTEROL 58 mg/dL (9-159); TRIGLYCERIDES 65 mg/dl (<150)
[2021-05-08 08:34] LABS: VITAMIN D, 25-HYDROXY 57.7 ng/mL (30-100)
[2021-05-08 10:00] VITALS: BP 138/88
[2021-05-08 17:57] VITALS: BP 99/75
[2021-05-08 22:00] VITALS: BP 99/75
[2021-05-09 06:00] VITALS: BP 126/58
[2021-05-09 06:20] LABS: BASO # 0.1 10*3/uL (0.0-0.1); BASO % 0.7 % (0.0-1.0); EOS # 0.5 10*3/uL (0.0-0.4); EOS % 7.4 % (1.0-4.0); LYMPH # 1.4 10*3/uL (1.3-4.4); LYMPH % 18.9 % (27.0-41.0); MEAN CELL VOLUME 86.8 fl (81.0-99.0); MEAN CORPUSCULAR HGB CONC 32.3 g/dl (33.0-37.0); MEAN PLATELET VOLUME 9.7 fl (9.6-12.3); MONO # 1.1 10*3/uL (0.1-1.0); MONO % 14.6 % (3.0-9.0); NEUT # 4.2 10*3/uL (2.3-7.9); NEUT % 57.7 % (47.0-73.0); PLATELET COUNT AUTOMATED 317 10*3/uL (130-400); RED BLOOD COUNT 3.57 10*6/uL (4.10-5.10); RED CELL DISTRI WIDTH 12.2 % (0-14.5); WHITE BLOOD COUNT 7.2 10*3/uL (4.8-10.8)
[2021-05-09 06:42] LABS: BUN 12 mg/dl (7-24); CHLORIDE 94 mmol/L (98-107); CREATININE 0.92 mg/dL (0.55-1.02); SODIUM 129 mmol/L (136-145)
[2021-05-09] MEDS ORDERED: AVPAK AZITHROM250 M1 PO (13:19)
== END 2021-05-09 15:08 | disposition home or self-care (01) | DRG 871 ==
LOC: ED 16:59 → EDHOLD 18:58
PROVIDERS: Internal Medicine; Social Worker Clinical; ADMIT Internal Medicine; ATTEND Internal Medicine
DX: A41.9 Sepsis, unspecified organism (principal); J18.9 Pneumonia, unspecified organism; E87.1 Hypo-osmolality and hyponatremia; J44.0 Chronic obstructive pulmonary disease with (acute) lower respiratory infection; J96.11 Chronic respiratory failure with hypoxia; I25.10 Atherosclerotic heart disease of native coronary artery without angina pectoris; I12.9 Hypertensive chronic kidney disease with stage 1 through stage 4 chronic kidney disease, or unspecified chronic kidney disease; E11.22 Type 2 diabetes mellitus with diabetic chronic kidney disease; F32.9 Major depressive disorder, single episode, unspecified; J45.909 Unspecified asthma, uncomplicated; E11.65 Type 2 diabetes mellitus with hyperglycemia; J44.9 Chronic obstructive pulmonary disease, unspecified; D64.9 Anemia, unspecified; F41.9 Anxiety disorder, unspecified; N18.31 Chronic kidney disease, stage 3a; Z91.041 Radiographic dye allergy status; Z88.8 Allergy status to other drugs, medicaments and biological substances; Z90.12 Acquired absence of left breast and nipple; Z98.51 Tubal ligation status; Z82.49 Family history of ischemic heart disease and other diseases of the circulatory system; Z79.51 Long term (current) use of inhaled steroids; Z79.82 Long term (current) use of aspirin; Z79.899 Other long term (current) drug therapy; Z98.890 Other specified postprocedural states; Z87.891 Personal history of nicotine dependence